=== PATIENT | female | born 1985 | race Caucasian/White ===

== ENCOUNTER 2017-02-06 18:36 | Emergency (ER) | payer OTHER ==
[~2017-02-06] VITALS: Ht 162.6 cm; Wt 73.5 kg
[2017-02-06 19:03] VITALS: Ht 162.6 cm; Wt 73.5 kg
--- NOTE | 2017-02-06 20:58 | RADRPT ---
PROCEDURE: XR Knee. CLINICAL INDICATION: Pain TECHNIQUE: AP, lateral and oblique view of the right knee were obtained. The images reviewed on a PACS workstation. COMPARISON: None. FINDINGS: Three views of the right knee demonstrate no displaced fracture. No gross malalignment is seen. Th ere is no significant degenerate change. No patellofemoral disease is identified. No knee joint effu rene is seen.. The bones normally mineralized. The soft tissues are unremarkable. IMPRESSION: No acute fracture dislocation RPTAT: HH .Ulisses Lee MD, MD Date Time Electronically viewed and signed by .Ulisses Lee MD, on 02/06/2017 20:58 .W/
[2017-02-06] MEDS ORDERED: IBUP800T25 PO (21:25)
--- NOTE | 2017-02-06 21:34 | ERD ---
ER Documentation Chief Complaint Date/Time DATE: 02/06/17 TIME: 21:29 Chief Complaint right knee pain x 2 days after a fall while playing [employer] This is a 31-year-old female presents to the emergency department complaining of a sudden onset of right knee pain after she fell and inverted knee 24 hours prior to arrival while playing soccer. She indicates that she has noticed a significant amount of swelling of her knee but not of her right calf. She denies any calf tenderness and no shortness of breath. She is able to ambulate but this exacerbates pain of the right knee which is 8 out of 10 in intensity. She has no numbness or tingling of her right lower extremity. She did not hit her head or lose consciousness. She denies any back pain. She did not take any analgesic medication prior to arrival and she denied a popping sensation at the time of the fall of her right knee. ROS All systems reviewed and are negative except as per history of present illness. Medications Home Meds Active Scripts Ibuprofen* (Motrin*) 800 Mg Tab, 800 MG PO Q6H Y for PAIN AND OR ELEVATED TEMP, #30 TAB Prov:NIKKI MCCRAY 02/06/17 Allergies Allergies: Coded Allergies: No Known Allergy (Unverified , 02/06/17) PMhx/Soc Medical and Surgical Hx: pt denies Medical Hx, pt denies Surgical Hx Hx Alcohol Use: No Hx Substance Use: No Hx Tobacco Use: No Smoking Status: Never smoker Physical Exam Vitals Vital Signs Date Time Temp Pulse Resp B/P Pulse Ox O2 Delivery O2 Flow Rate FiO2 02/06/17 19:03 97.7 70 20 112/58 99 Physical Exam Constitutional:Well-developed. Well-nourished. HEENT:Normocephalic. Atraumatic.Pupils were equal round reactive to light. Moist mucous membranes.No tonsillar exudates. Respiratory: Not using accessory muscles of respiration.Lungs were clear to auscultation bilaterally. No rhonchi. No rales. No wheezing. Cardiovascular: Regular rate regular rhythm.No murmurs. No rubs were appreciated.S1, S2 normal. Distal pulses are palpable 2+ bilaterally. Muscle skeletal: Full range of motion of both the upper and lower extremities bilaterally.Normal muscle tone.No assymetrical calf tenderness or swelling. Effusion of the right knee with tenderness of the right patella. Abbi's test was negative on the right. No laxity on valgus or varus stress testing of the right knee. Tenderness with passive flexion but not with extension of the right knee Skin: No petechia, no purpura. No lesions on the palms or the soles of the feet. No maculopapular rash. NEURO: Patient was alert, awake, orientated x3.No facial droop. Gait observed and normal with no ataxia.Speech had regular rate and rhythm. No focal neurological deficits. Procedures/MDM Utilizing the [facility] ankle and knee rules radiographic imaging was obtained of the patient's right knee. There is no acute fracture. There is no evidence of deep vein thrombosis, compartment syndrome or necrotizing fasciitis. The patient was placed in a knee immobilizer and Zeus bandage and given a prescription of Motrin for analgesic control. I did indicate to the patient I thought she would benefit from an outpatient MRI as I cannot rule out ligamentous injury at this time. The patient was discharged home in fair condition. They were instructed to return to the emergency department at any time if there was any worsening of their condition. The patient stated they would follow up with their PCP in the next 24-48 hours to initiate a suitable medication regimen under the care of their PCP as well as to allow their PCP to monitor any drug reactions. The patient was discharged home with prescriptions after they gave informed consent to the new medication. They were also fully informed by myself on the adverse effects and adverse drug interactions in order to provide adequate safeguards to prevent possible adverse reactions to medications. Departure Diagnosis: Primary Impression: Knee effusion, right Additional Impression: Right knee sprain Encounter type: initial encounter Involved ligament of knee: unspecified ligament Qualified Code: S83.91XA - Sprain of right knee, unspecified ligament , initial encounter Condition: Fair Patient Instructions: Knee Effusion, Knee Sprain: Collateral Ligaments NIKKI MCCRAY Feb 06, 2017 21:33
== END 2017-02-06 21:33 | disposition home or self-care (01) ==
LOC: FTE 18:36
DX: M25.461 Effusion, right knee (principal); S83.91XA Sprain of unspecified site of right knee, initial encounter; W18.39XA Other fall on same level, initial encounter; Y92.9 Unspecified place or not applicable
CPT/HCPCS: 29505; 73562; Z7502

== ENCOUNTER 2017-06-26 13:14 | Emergency (ER) | payer OTHER ==
[~2017-06-26] VITALS: Ht 162.6 cm; Wt 73.0 kg
[~2017-06-26 13:14] MED LIST: IBUP800T25 PO
[2017-06-26 13:43] VITALS: Ht 162.6 cm; Wt 73.0 kg
[2017-06-26] MEDS ORDERED: KETOROLAC 60 MG INJ IM STA (15:46)
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
[2017-06-26 16:28] LABS: URINE BLOOD (Dip) POC Negative (NEGATIVE)
--- NOTE | 2017-06-26 17:51 | RADRPT ---
PROCEDURE: XR Knee. CLINICAL INDICATION: Right knee pain. Trauma TECHNIQUE: 3 views of the right knee were obtained. The images reviewed on a PACS workstation. COMPARISON: None. FINDINGS: The bones appear intact, with no evidence of fracture, erosion, demineralization, or dislocation.The alignment of the femorotibial and patellofemoral joints appears normal. No joint space narrowing is seen. No evidence of effusion. No soft tissue swelling is present. IMPRESSION: Unremarkable examination of the right knee. RPTAT: HPNM Physician Margarita Date Time Electronically viewed and signed by Physician Margarita on 06/26/2017 17:51 /
--- NOTE | 2017-06-26 18:09 | RADRPT ---
PROCEDURE: XR Lumbar Spine. CLINICAL INDICATION: Lumbar spine pain. TECHNIQUE: AP, lateral, and cone-down lateral view of the lumbar spine were obtained. COMPARISON: No prior studies are available for comparison. FINDINGS: The alignment of the lumbar spine is within normal limits. The vertebral body heights and marrow de nsity are normal in appearance. There is preservation of the intervertebral disc spaces. There is no significant facet spondylosis. The neural foramina appear patent. The paraspinal soft tissues u nremarkable. The posterior elements are unremarkable. IMPRESSION: 1. Normal radiographs of the lumbar spine. 2. No evidence of fracture or significant degenerative disc disease. RPTAT: [facility] .Luis Nieves MD, MD Date Time Electronically viewed and signed by .Luis Nieves MD, on 06/26/2017 18:08 .S/
[2017-06-26] MEDS ORDERED: IBUP800T25 PO (18:11)
[2017-06-26] MEDS ORDERED: CYCL-319 PO (18:11)
[2017-06-26 19:05] VITALS: BP 118/62; PULSE 71; RESP 16; TEMP 98.3
== END 2017-06-26 19:06 | disposition home or self-care (01) ==
LOC: FTE 13:14
DX: S20.221A Contusion of right back wall of thorax, initial encounter (principal); V49.40XA Driver injured in collision with unspecified motor vehicles in traffic accident, initial encounter
CPT/HCPCS: 72100; 73562; 81003; 96372; J1885; Z7502